=== PATIENT | female | born 1950 | race Caucasian/White ===

== ENCOUNTER → 2016-08-27 | Outpatient (CLI) | payer MEDICARE ==
[~2016-08-27] MED LIST: LISI10TA3 PO
[2016-08-27 13:11] LABS: AUTOMATED NEUTROPHIL # 1.5 TH/MM3 (1.8-7.7); BASOPHIL % 0.8 % (0.0-2.0); EOSINOPHIL # 0.1 TH/MM3 (0-0.4); EOSINOPHIL % 2.2 % (0.0-4.0); HEMO FLAGS DIFF FINAL; LYMPH % 45.6 % (9.0-44.0); LYMPHOCYTE # 1.8 TH/MM3 (1.0-4.8); MEAN CELL VOLUME 95.3 FL (80.0-100.0); MEAN CORPUSCULAR HEMOGLOBIN 32.3 PG (27.0-34.0); MEAN CORPUSCULAR HGB CONC 33.9 % (32.0-36.0); MONO % 11.2 % (0.0-8.0); NEUT % 40.2 % (16.0-70.0); PLATELET COUNT 203 TH/MM3 (150-450); RED BLOOD COUNT 4.51 MIL/MM3 (4.00-5.30); RED CELL DISTRIBUTION WIDTH 13.6 % (11.6-17.2); WHITE BLOOD COUNT 3.8 TH/MM3 (4.0-11.0)
[2016-08-27 13:16] LABS: BLOOD, URINE TRACE (NEG); COMMENT (UR) CULT NOT INDICATED; CULTURE IF INDICATED CULT NOT INDICATED; GLUCOSE,URINE NEG (NEG); KETONE, URINE NEG (NEG); MUCUS URINE FEW /lpf (OCC); NITRITE,URINE NEG (NEG); SQUAMOUS EPITHELIAL CELL URINE 1 /hpf (0-5); URINE COLOR YELLOW (YELLW/STRAW)
[2016-08-27 13:28] LABS: ALKALINE PHOSPHATASE 79 U/L (45-117); ALT (GPT) 32 U/L (10-53); ANION GAP 7 MEQ/L (5-15); AST (GOT) 18 U/L (15-37); BICARBONATE 31.1 MEQ/L (21.0-32.0); BLOOD UREA NITROGEN 9 MG/DL (7-18); CHLORIDE 105 MEQ/L (98-107); GLOMERULAR FILTRATION RATE 129 ML/MIN (>89); GLUCOSE,FASTING 83 MG/DL (74-99); HDL CHOLESTEROL 96.8 MG/DL (40.0-60.0); LDL CHOLESTEROL 88 MG/DL (0-99); SODIUM (NA) 143 MEQ/L (136-145); TOTAL BILIRUBIN ADULT 0.3 MG/DL (0.2-1.0)
== END ==
LOC: PLAB 10:25
PROVIDERS: ATTEND Internal Medicine Geriatric Medicine
DX: N64.4 Mastodynia (principal); F41.9 Anxiety disorder, unspecified; I10 Essential (primary) hypertension; Z68.22 Body mass index [BMI] 22.0-22.9, adult
CPT/HCPCS: 36415; 80053; 80061; 81001; 84439; 84443; 84480; 85025; 86803

== ENCOUNTER 2018-04-19 19:42 | Observation (INO) ==
[2018-04-19] MEDS ORDERED: Ketorolac Inj 30 MG/ML (IVP) Vial IV.PUSH ONE (20:23)
--- NOTE | 2018-04-19 20:43 | ED ---
HPI General Chief complaint: Headache Stated complaint: MCMAHON/L back pain x 1 day Source: patient Mode of arrival: ambulatory Limitations: no limitations History of Present Illness HPI narrative: Patient presents with history of right temporal headache constant in nature since 1 AM. Patient also has intermittent pain to her left shoulder and arm that comes and goes; episodes and last approximately 10 minutes with diaphoresis. No shortness of breath or indigestion. No chest pain. Patient treated for hypertension yesterday and started on medication. Patient took 325 aspirin prior to arrival. Related Data Home Medications Medication Instructions Recorded Confirmed aspirin 325 mg PO DAILY 04/19/18 04/19/18 cyanocobalamin (vitamin B-12) 1 tab PO DAILY 04/19/18 04/19/18 [Vitamin B-12] lisinopril 10 mg PO DAILY 04/19/18 04/19/18 Allergies Allergy/AdvReac Type Severity Reaction Status Date / Time diatrizoate meglumine Allergy Severe Rash Verified 04/19/18 19:53 erythromycin base Allergy Severe MOUTH SORES Verified 04/19/18 19:53 gadobenic acid Allergy Severe Rash Verified 04/19/18 19:53 gadodiamide Allergy Severe Rash Verified 04/19/18 19:53 gadoteridol Allergy Severe Rash Verified 04/19/18 19:53 iodixanol Allergy Severe Rash Verified 04/19/18 19:53 iohexol Allergy Severe Rash Verified 04/19/18 19:53 penicillin G Allergy Severe Rash Verified 04/19/18 19:53 pentazocine Allergy Severe Rash Verified 04/19/18 19:53 Review of Systems ROS: all other systems reviewed are negative [facility] Medical History Medical History Hx of hysterectomy (Acute) Hypertension (Acute) Social History Social History Substance History: No History of Abuse Second Hand Smoke Exposure: Yes Smoking Status: Current every day smoker Tobacco Type: Cigarettes How Often Do You Have a Drink Containing Alcohol: Monthly or less Recent Travel in [facility] within the Last 8 Weeks: No Recent Out of Country Travel within the Last 8 Weeks: No Immunization History Tetanus Immunization: >5 Years Hx Influenza Vaccine This Season: No Exam Narrative Exam Narrative: GENERAL: Alert and oriented SKIN: Focused skin assessment warm/dry. HEAD: Atraumatic. Normocephalic. No tenderness to right temporal region EYES: Pupils equal and round. No scleral icterus. No injection or drainage. ENT: No nasal bleeding or discharge. Mucous membranes pink and moist. NECK and spine: Trachea midline. No JVD. Patient has some tenderness to T1-3 on left side with slight discomfort with range of motion with reticulation to left shoulder and arm CARDIOVASCULAR: Regular rate and rhythm. No murmur appreciated. RESPIRATORY: No accessory muscle use. Clear to auscultation. Breath sounds equal bilaterally. GASTROINTESTINAL: Abdomen soft, non-tender, nondistended. Hepatic and splenic margins not palpable. MUSCULOSKELETAL: No obvious deformities. No clubbing. No cyanosis. No edema. NEUROLOGICAL: Awake and alert. No obvious cranial nerve deficits. Motor grossly within normal limits. Normal speech. PSYCHIATRIC: Appropriate mood and affect; insight and judgment normal. Course Reevaluation(s) Reevaluation #1: Patient has had no recurrence of her shoulder and arm pain since presentation. Also her headache is resolved. Patient being admitted for cardiac evaluation and potential stress test prior to discharge. Time: 01:11 Initial Documented Vital Signs Temperature 98.8 F 04/19/18 19:53 Pulse Rate 75 04/19/18 19:53 Respiratory Rate 20 04/19/18 19:53 Blood Pressure 199/81 H 04/19/18 19:53 Pulse Oximetry 98 04/19/18 19:53 Last Documented Vital Signs Temperature 98.8 F 04/19/18 19:53 Pulse Rate 55 L 04/20/18 01:30 Respiratory Rate 18 04/20/18 01:30 Blood Pressure 106/51 L 04/20/18 01:30 Pulse Oximetry 97 04/20/18 01:30 Medical Decision Making [facility] Narrative Medical decision making narrative: Patient presents with history of hypertension and waking up with right temporal headache and left shoulder and arm pain. Patient had persistence of shoulder arm pain with diaphoresis from 1 AM until waking. Headache has been persistent since 1 PM. Patient had recurrence of shoulder and arm pain for about 10-15 minutes prior to arrival with persistent on arrival. However patient has no pain or discomfort with range or movement or use of the arm or shoulder Medical Screen Exam Complete: Yes Emergency Medical Condition: Yes Lab Data Result diagrams: 04/19/18 20:30 04/19/18 20:30 Lab Results 04/19/18 04/19/18 Range/Units 20:30 20:30 CBC w Diff Auto diff final WBC 6.4 (4.0-11.0) th/mm3 RBC 4.06 (4.00-5.30) mil/mm3 Hgb 13.5 (11.6-15.3) gm/dL Hct 39.6 (35.0-46.0) % MCV 97.5 (80.0-100.0) fL MCH 33.2 (27.0-34.0) pg MCHC 34.0 (32.0-36.0) % RDW 12.7 (11.6-17.2) % Plt Count 181 (150-450) th/mm3 MPV 9.8 (7.0-11.0) fL Neut % (Auto) 39.0 (16.0-70.0) % Lymph % (Auto) 49.2 H (9.0-44.0) % [place] % (Auto) 8.6 H (0.0-8.0) % Eos % (Auto) 1.8 (0.0-4.0) % Baso % (Auto) 1.4 (0.0-2.0) % Neut # (Auto) 2.5 (1.8-7.7) th/mm3 Lymph # (Auto) 3.2 (1.0-4.8) th/mm3 Gooding # (Auto) 0.5 (0.0-0.9) th/mm3 Eos # (Auto) 0.1 (0.0-0.4) th/mm3 Baso # (Auto) 0.1 (0.0-0.2) th/mm3 WBC Differential . Differential Comment . Sodium 139 (136-145) meq/L Potassium 4.7 (3.5-5.1) meq/L Chloride 106 (98-107) meq/L Carbon Dioxide 26.6 (21.0-32.0) meq/L Anion Gap 6 (5-15) meq/L BUN 9 (7-18) mg/dL Creatinine 0.52 (0.50-1.00) mg/dL Estimated GFR Greater than 89 (>89) mL/min Random Glucose 91 (74-106) mg/dL Calcium 8.5 (8.5-10.1) mg/dL Total Bilirubin 0.3 (0.2-1.0) mg/dL AST 43 H (15-37) U/L ALT 31 (10-53) U/L Alkaline Phosphatase 66 (45-117) U/L Troponin I Less than 0.02 L (0.02-0.05) ng/mL Total Protein 7.3 (6.4-8.2) g/dL Albumin 3.5 (3.4-5.0) g/dL Imaging Data Radiologist's impression: Chest X-Ray 04/19/18 20:34 CONCLUSION: No acute cardiopulmonary process. Thoracic Spine X-Ray 04/19/18 20:34 CONCLUSION: Negative thoracic spine series. Discharge Plan Discharge Disposition Patient Disposition: 30 Still Patient Physicians Team ED Provider: Jim Lowery Primary Care Provider: Primary Care Dolly Chung Attending Provider: Junior Medel Status ED Status: Admitted Observation Patient
[2018-04-19 21:07] LABS: Chloride 106 meq/L (98-107); Sodium 139 meq/L (136-145)
[2018-04-19 21:08] LABS: Potassium 4.7 meq/L (3.5-5.1)
[2018-04-19 21:11] LABS: Calcium 8.5 mg/dL (8.5-10.1)
[2018-04-19 21:12] LABS: Albumin 3.5 g/dL (3.4-5.0); Anion Gap 6 meq/L (5-15); Blood Urea Nitrogen 9 mg/dL (7-18); Carbon Dioxide 26.6 meq/L (21.0-32.0); Glucose,Random 91 mg/dL (74-106)
[2018-04-19 21:13] LABS: Baso # (Auto) 0.1 th/mm3 (0.0-0.2); Baso % (Auto) 1.4 % (0.0-2.0); Eos # (Auto) 0.1 th/mm3 (0.0-0.4); Eos % (Auto) 1.8 % (0.0-4.0); Hematocrit 39.6 % (35.0-46.0); Hemoglobin 13.5 gm/dL (11.6-15.3); Lymph # (Auto) 3.2 th/mm3 (1.0-4.8); Lymph % (Auto) 49.2 % (9.0-44.0); Mean Corpuscular Hemoglobin 33.2 pg (27.0-34.0); Mean Corpuscular Volume 97.5 fL (80.0-100.0); Mean Platelet Volume 9.8 fL (7.0-11.0); Mono # (Auto) 0.5 th/mm3 (0.0-0.9); Mono % (Auto) 8.6 % (0.0-8.0); Neut # (Auto) 2.5 th/mm3 (1.8-7.7); Platelet Count 181 th/mm3 (150-450); Red Blood Count 4.06 mil/mm3 (4.00-5.30); Red Cell Distribution Width 12.7 % (11.6-17.2); White Blood Count 6.4 th/mm3 (4.0-11.0)
[2018-04-19 21:15] LABS: Alanine Aminotransferase 31 U/L (10-53); Aspartate Aminotransferase 43 U/L (15-37); Glomerular Filtration Rate Greater Than 89 mL/min (>89)
[2018-04-19 21:17] LABS: Total Protein 7.3 g/dL (6.4-8.2)
[2018-04-19 21:18] LABS: Alkaline Phosphatase 66 U/L (45-117)
--- NOTE | 2018-04-19 21:18 | XR ---
EXAM DATE: 04/19/2018 9:10 PM EDT AGE/SEX: 67 years / Female INDICATIONS: Chest pain. CLINICAL DATA: This is the patient's initial encounter. Patient reports that signs and symptoms have been present for 2 days and indicates a pain score of 5/10. MEDICAL/SURGICAL HISTORY: None. None. COMPARISON: [facility], CHEST PA & LAT, 08/26/2015. . FINDINGS: A single AP view of the chest demonstrates the lungs to be symmetrically aerated without evidence of mass, infiltrate or effusion. The cardiomediastinal contours are unremarkable. Osseous structures a re intact. CONCLUSION: No acute cardiopulmonary process. Electronically signed by: Naga Crews MD 04/19/2018 9:17 PM EDT
--- NOTE | 2018-04-19 21:20 | XR ---
EXAM DATE: 04/19/2018 9:12 PM EDT AGE/SEX: 67 years / Female INDICATIONS: Patient complains of thoracic spine pain that radiates to left side of back as well as left shoulder/arm. CLINICAL DATA: This is the patient's initial encounter. Patient reports that signs and symptoms have been present for 2 days and indicates a pain score of 8/10. MEDICAL/SURGICAL HISTORY: None. None. COMPARISON: No prior exams available for comparison. FINDINGS: The vertebral bodies are in normal alignment without evidence of compression deformity. Minimal spur ring is seen at the anterior lower thoracic spine. Bone density is normal for age. Soft tissues are grossly intact. CONCLUSION: Negative thoracic spine series. Electronically signed by: Naga Crews MD 04/19/2018 9:18 PM EDT
[2018-04-20 04:17] LABS: Creatine Kinase 37 U/L (26-192)
[2018-04-20 05:40] LABS: Creatine Kinase 35 U/L (26-192)
[2018-04-20] MEDS ORDERED: Lisinopril 10 MG Tablet PO SCH (09:00)
[2018-04-20] MEDS ORDERED: Aspirin 325 MG Tablet PO SCH (09:00)
--- NOTE | 2018-04-20 10:52 | ECG ---
Date Performed: 04/19/2018 Time Performed: 21:09:42 PTAGE: 67 years EKG: Sinus rhythm WITH SINUS ARRHYTHMIA POSSIBLE LEFT ATRIAL ENLARGEMENT BORDERLINE ECG Since the PREVIOUS TRACING , no significant change noted PREVIOUS TRACIN08/26/2015 16.05 DOCTOR: Micheal Aguiar Interpretating Date/Time 04/20/2018 10:49:16
--- NOTE | 2018-04-20 10:53 | ECG ---
Date Performed: 04/20/2018 Time Performed: 04:21:04 PTAGE: 67 years EKG: SINUS BRADYCARDIA BORDERLINE ECG Since the PREVIOUS TRACING , no significant change noted PREVIOUS TRACIN04/20/2018 01.50 DOCTOR: Micheal Aguiar Interpretating Date/Time 04/20/2018 10:49:32
--- NOTE | 2018-04-20 10:53 | ECG ---
Date Performed: 04/20/2018 Time Performed: 01:50:40 PTAGE: 67 years EKG: SINUS BRADYCARDIA BORDERLINE ECG Since the PREVIOUS TRACING , no significant change noted PREVIOUS TRACIN04/19/2018 21.09 DOCTOR: Micheal Aguiar Interpretating Date/Time 04/20/2018 10:49:24
--- NOTE | 2018-04-20 10:55 | P.HP ---
<Ciro Rodgers - Last Filed: 04/20/18 14:16> History of Present Illness Primary Care Physician: No Primary Care Physician Chief Complaint: Left shoulder pain History of Present Illness: 67-year-old female with known history of hypertension, chronic tobacco use who presented to hospital because of left shoulder pain. Patient indicates that she has gone to a prior medical doctor's office the beginning of this week and was started on lisinopril for blood pressure management. She had not been treated for her blood pressure in over 4 years. Patient indicates that 2 days ago she was anticipating quitting smoking cigarettes and got a nicotine patch. She is still continues smoke while she is using the nicotine patch. She went to bed at 11 PM that night and at 1 AM she woke up with a severe headache and pain 6/10 on a pain scale in her left arm and shoulder. The pain went away and approximately 1 hour and she was able to go back to sleep. She went to work yesterday and on her way home she stopped off at the [employer] and she started developing the pain again. Lasted for approximately an hour or so she came to emergency department for evaluation. On presentation the patient was found to have blood pressure 199/81. Patient states that her headache was severe when she came to the emergency department but with the improvement of her blood pressure her headache improved. Patient had initial workup which did not indicate any acute abnormality. Is recommended by the ER physician that the patient be observed in the hospital for further evaluation and management. Patient denies any chest pain, nausea, vomiting, diaphoresis, shortness of breath, dyspnea. Patient denies any previous cardiac workup - Diagnosis (1) Left shoulder pain (2) Variant angina Review of Systems All other systems reviewed negative except as stated in HPI Musculoskeletal: Reports joint pain (Left shoulder) Neurologic: Reports headache(s) PMFSH - History History Provided By: Patient - Medical History Medical History: Medical History (Last Reviewed 04/20/18 @ 10:01 by ANAYELI Marte) Hypertension - Surgical History Surgical History: Surgical History (Last Updated 04/20/18 @ 10:01 by ANAYELI Marte) Hx of hysterectomy - Family History Family History: Family History (Last Updated 04/20/18 @ 10:06 by ANAYELI Marte) Mother History of colon cancer Father History of COPD Brother History of heart disease - Tobacco History Second Hand Smoke Exposure: Yes Tobacco Use In Past 30 Days: Yes Smoking Status: Current every day smoker Tobacco Type: Cigarettes Packs Per Day: 1 Years Smoked: 57 - Alcohol History How Often Do You Have a Drink Containing Alcohol: Monthly or less - Substance Use History Substance History: No History of Abuse - Travel History Recent Travel in the [place] Within the Last 8 Weeks: No Recent Travel Out of the Country Within the Last 8 Weeks: No - Immunization History Tetanus Immunization: >5 Years Hx Influenza Vaccine This Season: No Medications and Allergies Allergies Allergy/AdvReac Type Severity Reaction Status Date / Time diatrizoate meglumine Allergy Severe Rash Verified 04/19/18 19:53 erythromycin base Allergy Severe MOUTH SORES Verified 04/19/18 19:53 gadobenic acid Allergy Severe Rash Verified 04/19/18 19:53 gadodiamide Allergy Severe Rash Verified 04/19/18 19:53 gadoteridol Allergy Severe Rash Verified 04/19/18 19:53 iodixanol Allergy Severe Rash Verified 04/19/18 19:53 iohexol Allergy Severe Rash Verified 04/19/18 19:53 penicillin G Allergy Severe Rash Verified 04/19/18 19:53 pentazocine Allergy Severe Rash Verified 04/19/18 19:53 Home Medications Medication Instructions Recorded Confirmed Type aspirin 325 mg PO DAILY 04/19/18 04/19/18 History cyanocobalamin (vitamin B-12) 1 tab PO DAILY 04/19/18 04/19/18 History [Vitamin B-12] lisinopril 10 mg PO DAILY 04/19/18 04/19/18 History Active Medications: Active Medications Aspirin (Aspirin) 325 mg PO DAILY [facility] Last Admin: 04/20/18 08:43 Dose: 325 mg Lisinopril (Prinivil) 10 mg PO DAILY [facility] Last Admin: 04/20/18 08:43 Dose: 10 mg Sodium Chloride (Ns Flush) 2 ml IV.FLUSH UNSCH PRN PRN Reason: FLUSH AFTER USING IV ACCESS Sodium Chloride (Ns Flush) 2 ml IV.FLUSH BID [facility] Last Admin: 04/20/18 08:43 Dose: 2 ml Sodium Chloride (Ns Flush) 2 ml IV.FLUSH PRN PRN PRN Reason: FLUSH AFTER USING IV ACCESS Exam Vital signs: Vital Signs 04/19/18 19:53 04/19/18 20:24 04/19/18 21:15 Temperature 98.8 F Pulse Rate 75 65 55 L Respiratory Rate 20 18 20 Blood Pressure 199/81 H 184/93 H 162/71 H Pulse Oximetry 98 95 97 04/19/18 21:58 04/19/18 22:39 04/19/18 23:50 Temperature Pulse Rate 54 L 52 L 53 L Respiratory Rate 18 16 18 Blood Pressure 105/50 L 103/57 L 104/47 L Pulse Oximetry 97 99 95 04/20/18 01:30 04/20/18 03:00 04/20/18 03:38 Temperature 97.4 F L Pulse Rate 55 L 55 L Respiratory Rate 18 16 Blood Pressure 106/51 L 124/58 L Pulse Oximetry 97 95 95 04/20/18 03:40 04/20/18 04:15 04/20/18 08:00 Temperature 98.7 F Pulse Rate 47 L 60 Respiratory Rate 19 Blood Pressure 121/58 L Pulse Oximetry 95 96 Intake & Output 04/19/18 04/20/18 04/20/18 18:59 06:59 18:59 Intake Total 0 / 0 Balance 0 / 0 Weight 59 kg Intake: Oral 0 / 0 Narrative: GENERAL: Well-developed, well-nourished, in no acute distress. alert and orientated HEENT: Head is normocephalic without any lesions or masses noted. Facial features are symmetric. Eyes: Pupils equal round reactive to light. Extraocular muscles are intact. Conjunctivae were clear. Oropharyngeal: Pharynx without any erythema edema. Tongue is midline without deviation. Buccal mucosa is moist without any masses or lesions NECK: Supple without any masses. Trachea midline no deviation. No JVD, no bruits are appreciated CARDIAC: Regular rhythm, regular rate. S1/S2 are heard. No murmurs gallops or rubs. LUNGS: Clear to auscultation bilaterally. No wheeze, rhonchi or rales. No use of accessory muscles on inspiration or expiration. ABDOMEN: Soft, nontender. Nondistended. Bowel sounds heard in all 4 quadrants. No organomegaly or masses. Negative rebound, negative guarding EXTREMITIES: No edema, pulses are equal bilaterally. No cyanosis or clubbing NEUROLOGY: Mood and affect appear appropriate. Cranial nerves II through XII grossly intact. Muscle strength 5/5 in upper and lower extremities bilaterally. Deep tendon reflexes are 2+ in upper and lower extremities bilaterally. Results - Labs CBC & Chem 7: 04/19/18 20:30 04/19/18 20:30 Labs: Laboratory Results - last 24 hr 04/19/18 04/19/18 04/20/18 20:30 20:30 02:30 CBC w Diff Auto diff final WBC 6.4 RBC 4.06 Hgb 13.5 Hct 39.6 MCV 97.5 MCH 33.2 MCHC 34.0 RDW 12.7 Plt Count 181 MPV 9.8 Neut % (Auto) 39.0 Lymph % (Auto) 49.2 H [place] % (Auto) 8.6 H Eos % (Auto) 1.8 Baso % (Auto) 1.4 Neut # (Auto) 2.5 Lymph # (Auto) 3.2 [place] # (Auto) 0.5 Eos # (Auto) 0.1 Baso # (Auto) 0.1 WBC Differential . Differential Comment . Sodium 139 Potassium 4.7 Chloride 106 Carbon Dioxide 26.6 Anion Gap 6 BUN 9 Creatinine 0.52 Estimated GFR Greater than 89 Random Glucose 91 Calcium 8.5 Total Bilirubin 0.3 AST 43 H ALT 31 Alkaline Phosphatase 66 Total Creatine Kinase 37 Troponin I Less than 0.02 L Less than 0.02 L Total Protein 7.3 Albumin 3.5 04/20/18 04:30 CBC w Diff WBC RBC Hgb Hct MCV MCH MCHC RDW Plt Count MPV Neut % (Auto) Lymph % (Auto) [place] % (Auto) Eos % (Auto) Baso % (Auto) Neut # (Auto) Lymph # (Auto) [place] # (Auto) Eos # (Auto) Baso # (Auto) WBC Differential Differential Comment Sodium Potassium Chloride Carbon Dioxide Anion Gap BUN Creatinine Estimated GFR Random Glucose Calcium Total Bilirubin AST ALT Alkaline Phosphatase Total Creatine Kinase 35 Troponin I Less than 0.02 L Total Protein Albumin - Imaging Impressions Chest X-Ray 04/19/18 20:34 CONCLUSION: No acute cardiopulmonary process. Thoracic Spine X-Ray 04/19/18 20:34 CONCLUSION: Negative thoracic spine series. Caprini VTE Risk Assessment Caprini VTE Risk Assessment: No/Low Risk (score <= 1) Caprini Risk Assessment Model: Point Value = 1 Point Value = 2 Point Value = 3 Point Value = 5 Age 41-60 Minor surgery BMI > 25 kg/m2 Swollen legs Varicose veins or History of unexplained or recurrent spontaneous Oral contraceptives or hormone replacement Sepsis (< 1 month) Serious lung disease, including pneumonia (< 1 month) Abnormal pulmonary function Acute myocardial infarction Congestive heart failure (< 1 month) History of inflammatory bowel disease Medical patient at bed rest Age 61-74 Arthroscopic surgery Major open surgery (> 45 min) Laparoscopic surgery (> 45 min) Malignancy Confined to bed (> 72 hours) Immobilizing plaster cast Central venous access Age >= 75 History of VTE Family history of VTE Factor V Leiden Prothrombin [id number] Lupus anticoagulant Anticardiolipin antibodies Elevated serum homocysteine Heparin-induced thrombocytopenia Other congenital or acquired thrombophilia Stroke (< 1 month) Elective arthroplasty Hip, pelvis, or leg fracture Acute spinal cord injury (< 1 month) Prophylaxis Regimen: Total Risk Factor Score Risk Level Prophylaxis Regimen 0-1 Low Early ambulation 2 Moderate Order ONE of the following: *Sequential Compression Device (SCD) *Heparin 5000 units SQ BID 3-4 Higher Order ONE of the following medications: *Heparin 5000 units SQ TID *Enoxaparin/Lovenox 40 mg SQ daily (WT < 150 kg, CrCl > 30 mL/min) *Enoxaparin/Lovenox 30 mg SQ daily (WT < 150 kg, CrCl > 10-29 mL/min) *Enoxaparin/Lovenox 30 mg SQ BID (WT < 150 kg, CrCl > 30 mL/min) AND/OR *Sequential Compression Device (SCD) 5 or more Highest Order ONE of the following medications: *Heparin 5000 units SQ TID (Preferred with Epidurals) *Enoxaparin/Lovenox 40 mg SQ daily (WT < 150 kg, CrCl > 30 mL/min) *Enoxaparin/Lovenox 30 mg SQ daily (WT < 150 kg, CrCl > 10-29 mL/min) *Enoxaparin/Lovenox 30 mg SQ BID (WT < 150 kg, CrCl > 30 mL/min) AND *Sequential Compression Device (SCD) Assessment and Plan - Assessment (1) Left shoulder pain Code(s): M25.512 - Pain in left shoulder Status: Acute (2) Variant angina Code(s): I20.1 - Angina pectoris with documented spasm Status: Acute - Plan Left shoulder/arm pain, possible angina variant -Patient does have increased risk factors include age, hypertension, tobacco use , family history of heart disease -Patient has been ruled out for acute coronary event with serial cardiac enzymes that are negative -Serial EKGs are reviewed by myself shows sinus bradycardia without any changes -Exercise stress test was performed and indicated significant ST depressions that were flat in slowly upsloping noted in leads II, III, aVF. -Continue aspirin -Continue monitor telemetry -Consulted cardiology for further recommendations. They recommending that the patient be transferred to the main hospital for cardiac catheterization -We will start Lopressor, Nitropaste, Lipitor -Obtain lipid panel. Accelerated hypertension -Likely due to combination of nicotine patches and continued tobacco use -Home medications have been continued blood pressure is stable at this time Tobacco abuse -Patient counseled on cessation DVT prevention -Sequential compression devices Discharge Planning: Discharge home in stable condition Activity: Ad kristy. Diet: Healthy heart diet Medication per medication reconciliation Follow-up with primary medical doctor in 1 week <Roxanna Guerrier - Last Filed: 04/20/18 19:31> History of Present Illness Primary Care Physician: No Primary Care Physician - Diagnosis (1) Left shoulder pain (2) Variant angina PMFSH - Medical History Medical History: Medical History (Last Reviewed 04/20/18 @ 10:01 by ANAYELI Marte) Hypertension - Surgical History Surgical History: Surgical History (Last Updated 04/20/18 @ 10:01 by ANAYELI Marte) Hx of hysterectomy - Family History Family History: Family History (Last Updated 04/20/18 @ 10:06 by ANAYELI Marte) Mother History of colon cancer Father History of COPD Brother History of heart disease Medications and Allergies Active Medications: Active Medications Aspirin (Aspirin) 325 mg PO DAILY [facility] Last Admin: 04/20/18 08:43 Dose: 325 mg Atorvastatin Calcium (Lipitor) 20 mg PO DAILY [facility] Last Admin: 04/20/18 15:15 Dose: 20 mg Atropine Sulfate (Atropine Inj) 0.5 mg IV.PUSH UNSCH PRN PRN Reason: VAGAL REPONSE Lisinopril (Prinivil) 10 mg PO DAILY [facility] Last Admin: 04/20/18 08:43 Dose: 10 mg Metoprolol Tartrate (Lopressor) 12.5 mg PO BID [facility] Last Admin: 04/20/18 15:15 Dose: 12.5 mg Nitroglycerin (Nitro-Bid 2% Oint) 0.5 inch TOPICAL Q6HR MARI Sodium Chloride (Ns Flush) 2 ml IV.FLUSH UNSCH PRN PRN Reason: FLUSH AFTER USING IV ACCESS Sodium Chloride (Ns Flush) 2 ml IV.FLUSH BID [facility] Last Admin: 04/20/18 08:43 Dose: 2 ml Sodium Chloride (Ns Flush) 2 ml IV.FLUSH PRN PRN PRN Reason: FLUSH AFTER USING IV ACCESS Sodium Chloride (Ns Flush) 2 ml IV.FLUSH BID [facility] Sodium Chloride (Ns Flush) 2 ml IV.FLUSH PRN PRN PRN Reason: FLUSH AFTER USING IV ACCESS Exam Vital signs: Vital Signs 04/19/18 19:53 04/19/18 20:24 04/19/18 21:15 Temperature 98.8 F Pulse Rate 75 65 55 L Respiratory Rate 20 18 20 Blood Pressure 199/81 H 184/93 H 162/71 H Pulse Oximetry 98 95 97 04/19/18 21:58 04/19/18 22:39 04/19/18 23:50 Temperature Pulse Rate 54 L 52 L 53 L Respiratory Rate 18 16 18 Blood Pressure 105/50 L 103/57 L 104/47 L Pulse Oximetry 97 99 95 04/20/18 01:30 04/20/18 03:00 04/20/18 03:38 Temperature 97.4 F L Pulse Rate 55 L 55 L Respiratory Rate 18 16 Blood Pressure 106/51 L 124/58 L Pulse Oximetry 97 95 95 04/20/18 03:40 04/20/18 04:15 04/20/18 07:50 Temperature Pulse Rate 47 L Respiratory Rate Blood Pressure Pulse Oximetry 95 95 04/20/18 08:00 04/20/18 12:00 04/20/18 18:52 Temperature 98.7 F 98.7 F 98.0 F Pulse Rate 60 50 L 65 Respiratory Rate 19 20 18 Blood Pressure 121/58 L 124/66 145/72 H Pulse Oximetry 96 97 94 L Intake & Output 04/20/18 04/20/18 04/21/18 06:59 18:59 06:59 Intake Total 0 / 0 Output Total 200 / 200 Balance -200 / -200 Weight 59 kg Intake: Oral 0 / 0 Output: Urine 200 / 200 Results - Labs CBC & Chem 7: 04/19/18 20:30 04/19/18 20:30 Labs: Laboratory Results - last 24 hr 04/19/18 04/19/18 04/20/18 20:30 20:30 02:30 CBC w Diff Auto diff final WBC 6.4 RBC 4.06 Hgb 13.5 Hct 39.6 MCV 97.5 MCH 33.2 MCHC 34.0 RDW 12.7 Plt Count 181 MPV 9.8 Neut % (Auto) 39.0 Lymph % (Auto) 49.2 H [place] % (Auto) 8.6 H Eos % (Auto) 1.8 Baso % (Auto) 1.4 Neut # (Auto) 2.5 Lymph # (Auto) 3.2 [place] # (Auto) 0.5 Eos # (Auto) 0.1 Baso # (Auto) 0.1 WBC Differential . Differential Comment . Sodium 139 Potassium 4.7 Chloride 106 Carbon Dioxide 26.6 Anion Gap 6 BUN 9 Creatinine 0.52 Estimated GFR Greater than 89 Random Glucose 91 Calcium 8.5 Total Bilirubin 0.3 AST 43 H ALT 31 Alkaline Phosphatase 66 Total Creatine Kinase 37 Troponin I Less than 0.02 L Less than 0.02 L Total Protein 7.3 Albumin 3.5 Triglycerides Cholesterol LDL Cholesterol, Calc HDL Cholesterol Cholesterol/HDL Ratio 04/20/18 04/20/18 04:30 13:54 CBC w Diff WBC RBC Hgb Hct MCV MCH MCHC RDW Plt Count MPV Neut % (Auto) Lymph % (Auto) [place] % (Auto) Eos % (Auto) Baso % (Auto) Neut # (Auto) Lymph # (Auto) [place] # (Auto) Eos # (Auto) Baso # (Auto) WBC Differential Differential Comment Sodium Potassium Chloride Carbon Dioxide Anion Gap BUN Creatinine Estimated GFR Random Glucose Calcium Total Bilirubin AST ALT Alkaline Phosphatase Total Creatine Kinase 35 Troponin I Less than 0.02 L Total Protein Albumin Triglycerides 113 Cholesterol 177 LDL Cholesterol, Calc 87 HDL Cholesterol 67.0 H Cholesterol/HDL Ratio 2.64 - Imaging Impressions Chest X-Ray 04/19/18 20:34 CONCLUSION: No acute cardiopulmonary process. Thoracic Spine X-Ray 04/19/18 20:34 CONCLUSION: Negative thoracic spine series. Caprini VTE Risk Assessment Caprini Risk Assessment Model: Point Value = 1 Point Value = 2 Point Value = 3 Point Value = 5 Age 41-60 Minor surgery BMI > 25 kg/m2 Swollen legs Varicose veins or History of unexplained or recurrent spontaneous Oral contraceptives or hormone replacement Sepsis (< 1 month) Serious lung disease, including pneumonia (< 1 month) Abnormal pulmonary function Acute myocardial infarction Congestive heart failure (< 1 month) History of inflammatory bowel disease Medical patient at bed rest Age 61-74 Arthroscopic surgery Major open surgery (> 45 min) Laparoscopic surgery (> 45 min) Malignancy Confined to bed (> 72 hours) Immobilizing plaster cast Central venous access Age >= 75 History of VTE Family history of VTE Factor V Leiden Prothrombin [id number] Lupus anticoagulant Anticardiolipin antibodies Elevated serum homocysteine Heparin-induced thrombocytopenia Other congenital or acquired thrombophilia Stroke (< 1 month) Elective arthroplasty Hip, pelvis, or leg fracture Acute spinal cord injury (< 1 month) Prophylaxis Regimen: Total Risk Factor Score Risk Level Prophylaxis Regimen 0-1 Low Early ambulation 2 Moderate Order ONE of the following: *Sequential Compression Device (SCD) *Heparin 5000 units SQ BID 3-4 Higher Order ONE of the following medications: *Heparin 5000 units SQ TID *Enoxaparin/Lovenox 40 mg SQ daily (WT < 150 kg, CrCl > 30 mL/min) *Enoxaparin/Lovenox 30 mg SQ daily (WT < 150 kg, CrCl > 10-29 mL/min) *Enoxaparin/Lovenox 30 mg SQ BID (WT < 150 kg, CrCl > 30 mL/min) AND/OR *Sequential Compression Device (SCD) 5 or more Highest Order ONE of the following medications: *Heparin 5000 units SQ TID (Preferred with Epidurals) *Enoxaparin/Lovenox 40 mg SQ daily (WT < 150 kg, CrCl > 30 mL/min) *Enoxaparin/Lovenox 30 mg SQ daily (WT < 150 kg, CrCl > 10-29 mL/min) *Enoxaparin/Lovenox 30 mg SQ BID (WT < 150 kg, CrCl > 30 mL/min) AND *Sequential Compression Device (SCD) Assessment and Plan - Assessment (1) Left shoulder pain Code(s): M25.512 - Pain in left shoulder Status: Acute (2) Variant angina Code(s): I20.1 - Angina pectoris with documented spasm Status: Acute - Attending Attestation Patient underwent cardiac cath. Cardiology cleared for discharge. Discharge patient to home Condition on discharge: Improved Heart healthy Diet as tolerated Ad Kristy activity Rx written: Aspirin 81mg Qday Atorvastatin 20mg Qday Follow-up with primary care physician within one to two weeks.
[2018-04-20] MEDS ORDERED: Metoprolol Tartrate 25 MG Tablet PO SCH (13:30)
--- NOTE | 2018-04-20 16:02 | TR ---
Date Performed: 04/20/2018 Time Performed: 11:57:16 DOCTOR: Daniel Good DRUG LIST: CLINICAL HISTORY: REASON FOR TEST: REASON FOR ENDING: Completed Protocol OBSERVATION: Arrhythmia: None Chest Pain: None CONCLUSION: Patient tolerated MAN protocol with Total Exercise Time=2:59 Maximum UT=319 % Max HR Achieved=96.0% Maximum VQ=206/92, patient was asymptomatic during procedure, testing stopped secon ton to resp status, Patient reached target HR. During peak exercise, Patient had slow almost flat sl oping up ST segments in Inferior leads. HR and BP appropriate response to exercise. Recovery period H R and BP returned to baseline COMMENTS: ST depression noted in inferior leads. this may represent ischemia.
--- NOTE | 2018-04-20 16:52 | P.CONCA ---
History of Present Illness Service: Cardiology Consult date: 04/20/18 Reason for Consult: Abnormal stress test Primary Care Provider: No Primary Care Physician Family Provider: No Primary Care Physician Chief Complaint: Left shoulder pain History of Present Illness: This is 67-year-old female with past medical history of hypertension, hyperlipidemia, and chronic tobacco abuse who presented to the hospital with left shoulder pain. Patient has no prior history of known heart disease. Patient's been on treatment for blood pressure for about 4 years now. States the symptoms awoke her from sleep yesterday and rated at a 6 out of 10 in pain. Patient underwent exercise treadmill stress test which resulted in ST depression inferiorly consistent with possible ischemia. Patient was then transferred from [facility] to [facility] for consideration of cardiac catheterization. Review of Systems All other systems reviewed negative except as stated in [facility] - History History Provided By: Patient - Medical History Medical History: Medical History (Last Reviewed 04/20/18 @ 10:01 by ANAYELI Marte) Hypertension - Surgical History Surgical History: Surgical History (Last Updated 04/20/18 @ 10:01 by ANAYELI Marte) Hx of hysterectomy - Family History Family History: Family History (Last Updated 04/20/18 @ 10:06 by ANAYELI Marte) Mother History of colon cancer Father History of COPD Brother History of heart disease - Tobacco History Second Hand Smoke Exposure: Yes Tobacco Use In Past 30 Days: Yes Smoking Status: Current every day smoker Tobacco Type: Cigarettes Packs Per Day: 1 Years Smoked: 57 - Alcohol History How Often Do You Have a Drink Containing Alcohol: Monthly or less - Substance Use History Substance History: No History of Abuse - Travel History Recent Travel in the [place] Within the Last 8 Weeks: No Recent Travel Out of the Country Within the Last 8 Weeks: No - Immunization History Tetanus Immunization: >5 Years Hx Influenza Vaccine This Season: No Medications and Allergies Active Medications: Active Medications Aspirin (Aspirin) 325 mg PO DAILY [facility] Last Admin: 04/20/18 08:43 Dose: 325 mg Atorvastatin Calcium (Lipitor) 20 mg PO DAILY [facility] Last Admin: 04/20/18 15:15 Dose: 20 mg Lisinopril (Prinivil) 10 mg PO DAILY [facility] Last Admin: 04/20/18 08:43 Dose: 10 mg Metoprolol Tartrate (Lopressor) 12.5 mg PO BID [facility] Last Admin: 04/20/18 15:15 Dose: 12.5 mg Nitroglycerin (Nitro-Bid 2% Oint) 0.5 inch TOPICAL Q6HR [facility] Sodium Chloride (Ns Flush) 2 ml IV.FLUSH UNSCH PRN PRN Reason: FLUSH AFTER USING IV ACCESS Sodium Chloride (Ns Flush) 2 ml IV.FLUSH BID [facility] Last Admin: 04/20/18 08:43 Dose: 2 ml Sodium Chloride (Ns Flush) 2 ml IV.FLUSH PRN PRN PRN Reason: FLUSH AFTER USING IV ACCESS Allergies Allergy/AdvReac Type Severity Reaction Status Date / Time diatrizoate meglumine Allergy Severe Rash Verified 04/19/18 19:53 erythromycin base Allergy Severe MOUTH SORES Verified 04/19/18 19:53 gadobenic acid Allergy Severe Rash Verified 04/19/18 19:53 gadodiamide Allergy Severe Rash Verified 04/19/18 19:53 gadoteridol Allergy Severe Rash Verified 04/19/18 19:53 iodixanol Allergy Severe Rash Verified 04/19/18 19:53 iohexol Allergy Severe Rash Verified 04/19/18 19:53 penicillin G Allergy Severe Rash Verified 04/19/18 19:53 pentazocine Allergy Severe Rash Verified 04/19/18 19:53 Home Medications Medication Instructions Recorded Confirmed Type aspirin 325 mg PO DAILY 04/19/18 04/19/18 History cyanocobalamin (vitamin B-12) 1 tab PO DAILY 04/19/18 04/19/18 History [Vitamin B-12] lisinopril 10 mg PO DAILY 04/19/18 04/19/18 History Exam Vital signs: Vital Signs 04/19/18 19:53 04/19/18 20:24 04/19/18 21:15 Temperature 98.8 F Pulse Rate 75 65 55 L Respiratory Rate 20 18 20 Blood Pressure 199/81 H 184/93 H 162/71 H Pulse Oximetry 98 95 97 04/19/18 21:58 04/19/18 22:39 04/19/18 23:50 Temperature Pulse Rate 54 L 52 L 53 L Respiratory Rate 18 16 18 Blood Pressure 105/50 L 103/57 L 104/47 L Pulse Oximetry 97 99 95 04/20/18 01:30 04/20/18 03:00 04/20/18 03:38 Temperature 97.4 F L Pulse Rate 55 L 55 L Respiratory Rate 18 16 Blood Pressure 106/51 L 124/58 L Pulse Oximetry 97 95 95 04/20/18 03:40 04/20/18 04:15 04/20/18 07:50 Temperature Pulse Rate 47 L Respiratory Rate Blood Pressure Pulse Oximetry 95 95 04/20/18 08:00 04/20/18 12:00 Temperature 98.7 F 98.7 F Pulse Rate 60 50 L Respiratory Rate 19 20 Blood Pressure 121/58 L 124/66 Pulse Oximetry 96 97 Intake & Output 04/19/18 04/20/18 04/20/18 18:59 06:59 18:59 Intake Total 0 / 0 Output Total 200 / 200 Balance -200 / -200 Weight 59 kg Intake: Oral 0 / 0 Output: Urine 200 / 200 - Constitutional no acute distress - Routine HEENT Exam ENT: Present: mucous membranes moist - Routine Neck Exam Absent: JVD - Routine Respiratory Exam Present: CTA bilaterally - Routine Cardiovascular Exam Present: RRR. Absent: murmur - Routine Abdominal Exam Present: soft, normoactive bowel sounds - Routine Extremities Exam Absent: edema Results 04/19/18 20:30 04/19/18 20:30 Cardiac Enzymes 04/19/18 04/20/18 04/20/18 Range/Units 20:30 02:30 04:30 AST 43 H (15-37) U/L Troponin I Less than 0.02 L Less than 0.02 L Less than 0.02 L (0.02-0.05) ng/mL CBC 04/19/18 Range/Units 20:30 WBC 6.4 (4.0-11.0) th/mm3 RBC 4.06 (4.00-5.30) mil/mm3 Hgb 13.5 (11.6-15.3) gm/dL Hct 39.6 (35.0-46.0) % Plt Count 181 (150-450) th/mm3 Neut # (Auto) 2.5 (1.8-7.7) th/mm3 Lymph # (Auto) 3.2 (1.0-4.8) th/mm3 [place] # (Auto) 0.5 (0.0-0.9) th/mm3 Eos # (Auto) 0.1 (0.0-0.4) th/mm3 Baso # (Auto) 0.1 (0.0-0.2) th/mm3 Comprehensive Metabolic Panel 04/19/18 Range/Units 20:30 Sodium 139 (136-145) meq/L Potassium 4.7 (3.5-5.1) meq/L Chloride 106 (98-107) meq/L Carbon Dioxide 26.6 (21.0-32.0) meq/L BUN 9 (7-18) mg/dL Creatinine 0.52 (0.50-1.00) mg/dL Calcium 8.5 (8.5-10.1) mg/dL AST 43 H (15-37) U/L ALT 31 (10-53) U/L Alkaline Phosphatase 66 (45-117) U/L Total Protein 7.3 (6.4-8.2) g/dL Albumin 3.5 (3.4-5.0) g/dL Intake and Output 04/20/18 04/20/18 04/20/18 06:59 14:59 22:59 Intake Total 0 / 0 Output Total 200 / 200 Balance -200 / -200 Intake: Oral 0 / 0 Output: Urine 200 / 200 Other: Weight 59 kg Assessment and Plan - Assessment (1) Left shoulder pain Code(s): M25.512 - Pain in left shoulder Status: Acute (2) Variant angina Code(s): I20.1 - Angina pectoris with documented spasm Status: Acute - Plan Patient had atypical symptoms, but intermediate risk abnormal exercise electrocardiogram and cardiovascular risk factors. Patient was transferred from [facility] to the [facility] for consideration of cardiac catheterization. Patient is currently n.p.o. Risks and alternatives were discussed with the patient the patient is agreeable to proceed.
[2018-04-20 17:51] LABS: Chol/HDL Ratio 2.64 Ratio
[2018-04-20] MEDS ORDERED: Heparin 10,000 UNITS/10 ML Vial (for IV use) ONE (17:53)
[2018-04-20] MEDS ORDERED: fentaNYL Citrate Inj 100 MCG/2 ML Ampul ONE (17:53)
[2018-04-20] MEDS ORDERED: Heparin/NS PF Inj 1,000 ML ONE (17:54)
[2018-04-20] MEDS ORDERED: Hydrocortisone Sod Succinate 100 MG Vial ONE (18:01)
[2018-04-20] MEDS ORDERED: Atropine Inj 1 MG/ML Vial IV.PUSH PRN (18:25)
--- NOTE | 2018-04-20 18:28 | CATHPROC ---
[facility] HIS Report Study Information Study Number Admission Scheduled Start Study Start [id number] Apr 20 2018 1:17AM 04/20/2018 Apr 20 2018 5:52PM [facility] Service Cardiac Catheterization Admit Source Facility Department Other [facility] - Medical Psychotherapist Physician and Clinical Staff Initial Keith Kaur Material Combiner Ashley Villa,RN Material Combiner Kristin Vora,RN Recorder Duyen Holland ,RT(R) Scrub Randy Carter,RT(R) Procedures Performed Procedure Location (Site) Vessel Name Coronary Angiograms LCA Left Coronary Coronary Angiograms RCA Right Coronary L Heart Cath Equipment Time Foam Molder Description Size Mfg Part Number Used/Scraped TRANSDUCER, TRUWAVE [id number] 18:02 ESTRADA KAMARA * Used W/STOCKCOCK *[id number] [id number] *[id number] *[id number] [id number] *[id number] [id number] *[id number] 18:02 [employer] BLANKET,WARM AIR CCL * Used *[id number] 18:02 [employer] PACK, CCL CUSTOM * Used *[id number] 18:02 [employer] SUPPORT, ARTERIAL ADULT [id number] *[id number] Used BAND, RADIAL COMPRESSION TR [id number] 18:24 EndoStim 24CM Used SHORT 24 *[id number] SHEATH, FR6 RADIAL PRELUDE 18:02 EndoStim FR 6 [id number] Used EASE 11CM [id number] 18:02 EndoStim WIRE, EXCHANGE 260CM 3MMJ 260CM Used *[id number] 18:02 NAM MANIFOLD, 4 PORT * Used *[id number] 18:02 NYCOMED OMNIPAQUE, 350 MG, 150ML 150ML [id number] Used History: Allergies Allergy Reaction iohexol Rash pentazocine Rash diatrizoate meglumine Rash erythromycin base MOUTH SORES gadoteridol Rash gadodiamide Rash penicillin G Rash iodixanol Rash gadobenic acid Rash History: Risk Factors Family History of Hypertension Dyslipidemia Previous IA Previous Heart Failure Premature CAD No No No No No Prior Valve Prior PCI Prior CABG Surgery No No No Cerebrovascular Peripheral Artery Chronic Lung On Dialysis Diabetes Disease Disease Disease No No No No No History: Stress Tests Stress or Imaging Studies Performed Yes Standard Exercise Stress Stress Test Result Test Yes Indeterminant Stress Echo No Stress Test SPECT No Stress Test CMR No Cardiac CTA Coronary Calcium Score No No History: Other Current Smoker Packs a Day Years Used Pack Years Yes 1 40 40 Labs Hgb (g/dl) Hct (%) WBC (l/cumm) Platelets (thousands) 11.60-17.00 35.00-51.00 4.00-11.00 150.00-450.00 13.5 39.6 6.4 181 Glucose (mg/dl) BUN (mg/dl) Creatinine (mg/dl) BUN:Creatinine (1:x) 74.00-106.00 7.00-18.00 0.50-1.30 10.00-20.00 91 9 0.5 18 Na (meq/l) K (meq/l) 136.00-145.00 3.50-5.10 139 4.7 Troponin I (ng/ml) CPK (u/l) CPK-MB (ng/ML) 0.02-0.05 26.00-308.00 0.50-3.60 0.02 35 Not Drawn Medication Medication Total Dose (Bolus/Oral) Medication Total Dosage/Unit 1% XYLOCAINE 5 mL FENTANYL 75 mcg HEPARIN 3000 units RADIAL COCKTAIL 5 mL (Bolus) SOLU-CORTEF 100 mg VERSED 3 mg Medications (Bolus/Oral) Medication Time Given Dosage/Unit Administered By Reason SOLU-CORTEF 04/20/2018 6:03:24 PM 100 mg Adamy, Ashley 100 mg SOLU-CORTEF given in lab by Ashley Villa, CALEB in Right Antecubital via Peripheral IV. Ordere d by Keith Lewis. VERSED 04/20/2018 6:09:40 PM 2 mg Jamaly, Ashley 2 mg VERSED given in lab by Ashley Villa, CALEB via Peripheral IV. Ordered by Keith Lewis. FENTANYL 04/20/2018 6:10:50 PM 50 mcg Daisy, Ashley 50 mcg FENTANYL given in lab by Ashley Villa, CALEB via Peripheral IV. Ordered by Keith Lewis. 1% XYLOCAINE 04/20/2018 6:12:25 PM 5 mL Adelaida Villafer 5 mL 1% XYLOCAINE given in lab by Ashley Villa, CALEB via Subcutaneous. Ordered by Keith Lewis. Ntg 200mcg Verapamil 2.5mg Heparin RADIAL COCKTAIL 04/20/2018 6:13:55 PM 5 mL (Bolus) Keith Lewis 3000U 5 mL (Bolus) RADIAL COCKTAIL given in lab by Keith Lewis, RN via Radial. Using [Solution Name]. Or dered by Keith Lewis. Reason: Ntg 200mcg HEPARIN 04/20/2018 6:15:13 PM 3000 units Keith Lewis 3000 units HEPARIN given in lab by Keith Lewis via Peripheral IV. Ordered by Keith Lewis. VERSED 04/20/2018 6:19:57 PM 1 mg Ashley Villa 1 mg VERSED given in lab by Ashley Villa, CALEB via Peripheral IV. Ordered by Keith Lewis. FENTANYL 04/20/2018 6:20:06 PM 25 mcg Ashley Villa 25 mcg FENTANYL given in lab by Ashley Villa, CALEB via Peripheral IV. Ordered by Keith Lewis. Medication (Drip) Medication Time Given Dosage/Unit Concentration/Unit Diluent (ml) Solution IV Solutions 04/20/2018 5:53:09 PM 50 mL (IV) NaCl .9 IV Solutions given in lab by Ashley Villa, CALEB in Right Antecubital via Peripheral IV. Pump/Drip Fl ow using NaCl .9. Ordered by Keith Lewis. Initial Case Assessment Cardiovascular HR NIBP 55 160/77 Circulatory - Right Pulses Dorsalis Pedis Femoral Radial 1 1 1 Scale (0,1,2,3,4,d) Scale (0,1,2,3,4,d) Neurological State Oriented to time-place- Alert Moves all extremities person Respiration - General Respiration Rate SpO2 (%) (B/min) 20 97 Final Case Assessment Cardiovascular HR NIBP 55 160/77 Circulatory - Right Pulses Dorsalis Pedis Femoral Radial 1 1 1 Scale (0,1,2,3,4,d) Scale (0,1,2,3,4,d) Neurological State Oriented to time-place- Alert Moves all extremities person Respiration - General Respiration Rate SpO2 (%) (B/min) 20 97 Chronological Log Time Study Chronological Log 17:52:56 Patient arrived via Bed. 17:52:56 Patient Name, D.O.B, / Armband Verified By R.N. 17:52:57 Consent signed by the physician and the patient and verified by the Medical Psychotherapist staff. 17:52:57 Pre-op and post- op instructions given; patient acknowledges understanding of instructions. 17:52:58 Verbal Stimulation=2 Physical Stimulation=2 Airway=2 Respiration=2 TOTAL=8. (0=absent, 1=li mited, 2=present) 17:53:03 Allens test performed on the right radial and ulnar artery. 17:53:05 Patient has been NPO for More than 6Hrs. 17:53:06 Skin Breakdown- none per patient 17:53:06 Patient Warmer Placed on the Table. 17:53:07 Disposable Defibrillator Pads Placed On Patient. 17:53:07 [place] Prominences Protected 17:53:08 A # 20 IV was noted in the Antecubital (right). Grade = 0 IV Solutions given in lab by Ashley Villa, CALEB in Right Antecubital via Peripheral IV. Pump/D rip Flow using NaCl .9. 17:53:09 Ordered by Keith Lewis. 17:53:09 History and physical on the chart or being dictated. Assessment: Initial Case, HR=55 BPM, QGYZ=946/77 mmhg Right Pulses: Antonio Ped=1, Femoral=1, Radial=1 17:53:10 Neurological: State=Alert, Ox3, MATOS Respiration: Resp=20 B/min, SpO2=97 % Vitals capture started with the following parameters, Patient=Adult, Interval=3 min, Initial Pr qbmrnx=234 mmHg, 18:01:18 Deflation Rate=5 mmHg, Cuff placed on Left Arm 18:01:57 Vitals capture stopped. Vitals capture started with the following parameters, Patient=Adult, Interval=3 min, Initial Pr jgehzh=069 mmHg, 18:01:59 Deflation Rate=5 mmHg, Cuff placed on Left Arm 18:02:30 Right Radial and right groin prepped with 2% chlorhexidine, and draped after a 3 min. waiti ng time. 18:02:37 HR=57 bpm, FGAS=221/77 mmhg, SpO2=97.0 %, Resp=21 B/min 100 mg SOLU-CORTEF given in lab by Ashley Villa, RN in Right Antecubital via Peripheral IV. Ordered by Joshua, 18:03:24 Keith. 18:05:43 HR=57 bpm, ZYGK=806/69 mmhg, SpO2=98.0 %, Resp=13 B/min 18:07:00 MD paged 18:07:50 MD responded 18:08:05 Pressure channel 1 zeroed. 18:08:43 HR=58 bpm, HOBX=553/76 mmhg, SpO2=96.0 %, Resp=14 B/min Time Out. Correct patient, correct procedure, correct physician, labs, allergies, and equipment verified with vp lab 18:08:55 team present. Fire risk assesment completed (see hard stop sheet for coding). Time Out Conc urred by MD and individual staff in procedure. 18:09:05 MD arrived. 18:09:40 2 mg VERSED given in lab by Ashley Villa, CALEB via Peripheral IV. Ordered by Ralf Lewis 18:10:50 50 mcg FENTANYL given in lab by Ashley Villa, CALEB via Peripheral IV. Ordered by St julita Lewis. 18:11:17 Reference ECG taken 18:11:48 HR=56 bpm, UUHL=112/59 mmhg, SpO2=93.0 %, Resp=21 B/min 18:12:21 Case Start 18:12:25 5 mL 1% XYLOCAINE given in lab by Ashley Villa, CALEB via Subcutaneous. Ordered by Shara Lewis. 18:13:38 Access site was Right Radial Artery . A SHEATH, FR6 RADIAL PRELUDE EASE 11CM FR 6 was advanced into the Radial (right) using the Perc utaneous 18:13:44 technique. 5 mL (Bolus) RADIAL COCKTAIL given in lab by Keith Lewis, RN via Radial. Using [Solution Nam e]. Ordered by 18:13:55 Keith Lewis. Reason: Ntg 200mcg 18:15:13 3000 units HEPARIN given in lab by Keith Lewis via Peripheral IV. Ordered by Scottie Lewis. 18:15:21 HR=63 bpm, YUUF=644/72 mmhg, SpO2=92.0 %, Resp=28 B/min A JR 5.0 INFINITI CATHETER FR 4 was advanced over a wire. OMNIPAQUE, 350 MG, 150ML 150ML was us ed for 18:15:56 injections. Recorded Pressure: Ao, HR=57, Condition=Condition 1 18:17:07 (Aorta) Ao 124/53/79 18:17:27 The RCA was injected and visualized at various angles. OMNIPAQUE, 350 MG, 150ML 150ML used . 18:17:36 HR=62 bpm, JOMM=756/65 mmhg, SpO2=90.0 %, Resp=18 B/min 18:17:40 Catheter was removed A JL 3.5 INFINITI CATHETER FR 4 was advanced over a wire. OMNIPAQUE, 350 MG, 150ML 150ML was u sed for 18:19:27 injections. 18:19:57 1 mg VERSED given in lab by Ashley Villa, CALEB via Peripheral IV. Ordered by Sugey Lewis 18:20:06 25 mcg FENTANYL given in lab by Ashley Villa, CALEB via Peripheral IV. Ordered by Shara Lewis. 18:21:11 HR=59 bpm, OGPY=059/93 mmhg, SpO2=93.0 %, Resp=12 B/min 18:22:21 The LCA was injected and visualized at various angles. OMNIPAQUE, 350 MG, 150ML 150ML use d. 18:22:42 Catheter was removed 18:23:02 Case End (Physician broke scrub) Assessment: Final Case, HR=55 BPM, WPWQ=713/77 mmhg Right Pulses: Antonio Ped=1, Femoral=1, Radial=1 18:23:11 Neurological: State=Alert, Ox3, MATOS Respiration: Resp=20 B/min, SpO2=97 % 18:23:25 Catheter(s) removed without difficulty Radial Compression Device Used. 11 mLs of air placed in BAND, RADIAL COMPRESSION TR SHORT 24 2 4CM. Affected 18:23:31 hand 96 % O2 saturation. 18:23:37 No case complications noted. 18:23:40 Cine recording checked. 18:23:42 HR=64 bpm, VVBU=170/84 mmhg, SpO2=80.0 %, Resp=17 B/min 18:23:43 Bedside Report will be given. 18:23:49 A Left Heart Cath was performed. 18:26:43 HR=65 bpm, FYTV=311/74 mmhg, SpO2=87.0 %, Resp=14 B/min 18:29:39 HR=58 bpm, HNHN=917/64 mmhg, SpO2=89.0 %, Resp=15 B/min 18:34:23 Patient moved to [facility] End Study - Contrast Media Used In Study Contrast Total Opened (mL) Total Used (mL) Total Wasted (mL) Omnipaque 20 20 0 End Study - Maximum Contrast Load Max Contrast Load (mL) 590.9 End Study - Radiation Exposure Fluoro Time (minutes) 1.9 End Study - Sheaths Sheaths Pulled By Sheath Hold Time (min) Randy Carter End Study - Patient Disposition Complications Transferred To Interventional Outcome No Regular Bed No attempt made
[2018-04-20] MEDS ORDERED: Iohexol 350 MG/ML 50 ML Vial (for Cath Lab) IVCONTRAST ONE (20:29)
--- NOTE | 2018-05-23 12:13 | MA ---
cc: Keith Lewis MD DATE: 04/20/2018 PROCEDURE PERFORMED: 1. Fluoroscopy with interpretation. 2. Coronary angiography. METHOD: Risks, benefits and alternatives discussed with the patient. The patient understood and consented to the procedure. PROCEDURE: The patient was brought into the catheterization lab and placed on the catheterization table. The right wrist was prepped and draped in sterile fashion. The right wrist was anesthetized with 2% lidocaine. The right radial artery was cannulated and a 6-Tamazight 7 cm sheath was placed without difficulty. CORONARY ANGIOGRAPHY: 1. Left main coronary artery is angiographically normal. 2. Left anterior descending coronary artery is angiographically normal. 3. Left circumflex coronary artery is angiographically normal. 4. Right coronary artery is angiographically normal, dominant vessel. CONCLUSIONS: Angiographically normal coronary arteries. Keith Lewis MD MALIK/ld , 11:45 AM , 11:51 AM
== END 2018-04-20 20:30 | disposition home or self-care (01) ==
LOC: PHEDA 19:42 → PHEFT 19:42 → PH3 04-20 03:14 → HCIS 04-20 16:03
PROVIDERS: ADMIT Hospitalist; ATTEND Hospitalist
DX: R51 Headache; Z79.82 Long term (current) use of aspirin; Z82.49 Family history of ischemic heart disease and other diseases of the circulatory system; I10 Essential (primary) hypertension; R00.1 Bradycardia, unspecified; I20.1 Angina pectoris with documented spasm; M54.9 Dorsalgia, unspecified; R94.39 Abnormal result of other cardiovascular function study; E78.5 Hyperlipidemia, unspecified; M25.512 Pain in left shoulder; R61 Generalized hyperhidrosis; F17.210 Nicotine dependence, cigarettes, uncomplicated